=== PATIENT | female | born 1990 | race Caucasian/White ===

== ENCOUNTER → 2025-01-03 09:50 | Outpatient (REF) | payer OTHER, SELFPAY | LOC: HWRAD 09:50 | PROVIDERS: ATTENDING PHYSICIAN Advanced Practice Midwife; FAMILY PHYSICIAN Family Medicine | DX: N92.0 Excessive and frequent menstruation with regular cycle (principal); N63.21 Unspecified lump in the left breast, upper outer quadrant | CPT/HCPCS: 76830; 76856 ==

== ENCOUNTER → 2025-01-10 09:18 | Outpatient (REF) | payer OTHER, SELFPAY | LOC: WDC 09:18 | PROVIDERS: ATTENDING PHYSICIAN Advanced Practice Midwife; FAMILY PHYSICIAN Family Medicine | DX: N63.21 Unspecified lump in the left breast, upper outer quadrant (principal) | CPT/HCPCS: 76642; 77062; 77066 ==